=== PATIENT | female | born 1990 | race Caucasian/White ===

== ENCOUNTER 2023-01-09 16:12 | Emergency (ER) | payer OTHER, BC ==
[~2023-01-09] VITALS: Ht 154.9 cm; Wt 81.7 kg
[2023-01-09 16:30] VITALS: BP 136/88
[2023-01-09] MEDS ORDERED: Robaxin750 MG PO (16:51)
[2023-01-09] MEDS ORDERED: IBUP800 PO (16:51)
== END 2023-01-09 16:52 | disposition home or self-care (01) ==
LOC: ER 16:12
DX: S29.002A Unspecified injury of muscle and tendon of back wall of thorax, initial encounter (principal); M79.642 Pain in left hand; M25.561 Pain in right knee; V47.5XXA Car driver injured in collision with fixed or stationary object in traffic accident, initial encounter
CPT/HCPCS: 99283